=== PATIENT | female | born 1995 | race Caucasian/White ===

== ENCOUNTER 2018-02-18 00:06 | Emergency (ER) | payer BC ==
[~2018-02-18] VITALS: Ht 167.6 cm; Wt 67.2 kg
[~2018-02-18 00:06] MED LIST: BCPILLS PO
[2018-02-18 00:09] VITALS: TEMP 36.5; Ht 167.6 cm; Wt 67.2 kg
[2018-02-18] MEDS ORDERED: OXYCODONE HCL IR 5 MG TAB (IMMEDIATE RELEASE) PO STA (00:17)
[2018-02-18] MEDS ORDERED: OXYCODONE IR HOME PACK PO ONE (01:00)
[2018-02-18 01:35] VITALS: BP 141/84; PULSE 81; O2SAT 98
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
--- NOTE | 2018-02-18 05:47 | DIAGNOSTIC IMAGING REPORT ---
R WRIST MIN 3 VIEWS ROUTINE CLINICAL HISTORY: eval for fx trauma. Pain. COMPARISON: None. DISCUSSION: Potential incomplete hairline fracture versus vascular groove mid navicular. Alignment is anatomic. All remaining osseous structures are considered unremarkable. There is moderate soft tissue edematous changes. IMPRESSION: Probable incomplete cortical fracture mid navicular. The above report was generated using voice recognition software. It may contain grammatical, syntax or spelling errors. Electronically signed by: Bharath Castaneda M.D. 02/18/2018 5:46 AM Dictated Date/Time: 02/18/2018 5:45 AM
== END 2018-02-18 01:41 | disposition home or self-care (01) ==
LOC: C.EDB 00:08 → C.EDC 01:41
DX: S62.024A Nondisplaced fracture of middle third of navicular [scaphoid] bone of right wrist, initial encounter for closed fracture (principal); W03.XXXA Other fall on same level due to collision with another person, initial encounter; Z79.3 Long term (current) use of hormonal contraceptives